=== PATIENT | female | born 1965 | race Two or more races ===

== ENCOUNTER 2023-04-09 19:29 | Emergency (ER) | payer MEDICAID ==
[~2023-04-09] VITALS: Ht 160 cm; Wt 39.9 kg
[2023-04-09] MEDS ORDERED: MORPHINE SULFATE INJ 2 MG/ML DISP.SYRIN ONE (20:27)
[2023-04-09] MEDS ORDERED: MORPHINE SULFATE INJ 2 MG/ML DISP.SYRIN IV ONE (20:30)
[2023-04-09] MEDS ORDERED: IBUPROFEN 400 MG TABLET PO ONE (21:00)
[2023-04-09] MEDS ORDERED: IBUPROFEN 400 MG TABLET ONE (21:02)
[2023-04-09] MEDS ORDERED: PROPOFOL 20 ML IV ONE (21:26)
[2023-04-09] MEDS ORDERED: PROPOFOL 200 MG/20 ML VIAL IV ONE (21:30)
[2023-04-09] MEDS ORDERED: ACET-2605 PO (22:26)
[2023-04-09] MEDS ORDERED: IBUP-1955 PO (22:26)
[2023-04-09] MEDS ORDERED: HYDR-3972 PO (22:26)
[2023-04-09] MEDS ORDERED: TDAP [DIPH/PERTUSSIS/TET] 0.5 ML VIAL IM ONE (22:30)
[2023-04-09 22:44] VITALS: BP 140/85; TEMP 98; O2SAT 97
== END 2023-04-09 22:45 | disposition home or self-care (01) ==
LOC: ER 19:39
DX: S59.192 Other physeal fracture of upper end of radius, left arm (principal); Z79.899 Other long term (current) drug therapy; W01.0XXA Fall on same level from slipping, tripping and stumbling without subsequent striking against object, initial encounter; Y93.89 Activity, other specified; Y92.89 Other specified places as the place of occurrence of the external cause; Y99.8 Other external cause status
CPT/HCPCS: 25605; 99285; 90471; 99152; 90715; 73110; 96374; 73100; J2704; J7040; J2270; G0500

== ENCOUNTER 2023-08-04 12:12 | Emergency (ER) | payer MEDICAID ==
[~2023-08-04] VITALS: Ht 162.6 cm; Wt 43.5 kg
[~2023-08-04 12:12] MED LIST: ACET-2605 PO; HYDR-3972 PO; IBUP-1955 PO
[2023-08-04 13:34] LABS: BASOPHILS % (AUTO) 1.2 % (0.0-2.0); EOSINOPHILS # (AUTO) 0.1 K/uL (0.0-0.7); EOSINOPHILS % (AUTO) 1.6 % (0.0-6.0); HEMATOCRIT 29 % (33-45); HEMOGLOBIN 9.7 g/dL (11.5-14.8); LYMPHOCYTES # (AUTO) 1.1 K/uL (0.8-4.8); LYMPHOCYTES % (AUTO) 27.2 % (20.0-44.0); MEAN CORPUSCULAR HEMOGLOBIN 36 PG (26.0-33.0); MEAN CORPUSCULAR HGB CONC 34 g/dl (31.0-36.0); MEAN CORPUSCULAR VOLUME 106 fL (82-100); MONOCYTES # (AUTO) 0.4 K/uL (0.1-1.30); MONOCYTES % (AUTO) 10.6 % (2.0-12.0); NEUTROPHILS # (AUTO) 2.3 K/uL (1.8-8.9); NEUTROPHILS % (AUTO) 59.4 % (43.0-81.0); PLATELET COUNT (AUTO) 181 K/uL (150-450); RED CELL DISTRIBUTION WIDTH 13.3 % (11.5-15.0); WHITE BLOOD COUNT (AUTO) 3.9 K/uL (4.3-11.0)
[2023-08-04 13:49] LABS: ALBUMIN 3.1 g/dL (3.4-5.0); BILIRUBIN,DIRECT 0.3 mg/dL (0.0-0.2); BILIRUBIN,TOTAL 0.5 mg/dL (0.2-1.0); CALCIUM, SERUM 7.8 mg/dL (8.5-10.1); CREATININE 0.4 mg/dL (0.6-1.3)
[2023-08-04 13:54] LABS: SALICYLATE 0.8 mg/dL (2.8-20.0)
[2023-08-04 13:55] LABS: POTASSIUM 2.8 mmol/L (3.5-5.1)
[2023-08-04] MEDS ORDERED: POTASSIUM CHLORIDE 20 MEQ TAB.PRT.SR PO ONE (14:28)
[2023-08-04] MEDS: IV NS 0.9% 1,000 ML BAG IV ONE (14:30)
[2023-08-04] MEDS: POTASSIUM CHLORIDE 20 MEQ TAB.PRT.SR PO ONE (14:30)
[2023-08-04 15:35] VITALS: BP 110/76; TEMP 98.6; O2SAT 98
== END 2023-08-04 15:36 | disposition home or self-care (01) ==
LOC: ER 12:15
DX: R53.1 Weakness (principal); F10.229 Alcohol dependence with intoxication, unspecified; D72.819 Decreased white blood cell count, unspecified; D52.0 Dietary folate deficiency anemia; E88.09 Other disorders of plasma-protein metabolism, not elsewhere classified; E87.6 Hypokalemia; Y90.8 Blood alcohol level of 240 mg/100 ml or more
CPT/HCPCS: 99283; 96360; 85025; 80048; 80076; 36415; 80143; 80320; J7030; G0480

== ENCOUNTER 2023-12-07 07:10 | Emergency (ER) | payer MEDICAID ==
[~2023-12-07] VITALS: Ht 157.5 cm; Wt 38.6 kg
[2023-12-07 08:12] LABS: APPEARANCE,URINE CLEAR (CLEAR); BILIRUBIN,URINE 1+ (NEGATIVE); BLOOD, URINE NEGATIVE Ery/uL (NEGATIVE); COLOR,URINE YELLOW (YELLOW); KETONES,URINE TRACE mg/dL (NEGATIVE); LEUKOCYTE ESTERASE ,URINE NEGATIVE (NEGATIVE); NITRITE, URINE POSITIVE (NEGATIVE); PROTEIN,URINE NEGATIVE (NEGATIVE); UGLUCOSE NEGATIVE (NEGATIVE)
[2023-12-07 08:12] LABS: BASOPHILS % (AUTO) 0.3 % (0.0-2.0); CALCIUM, SERUM 7.7 mg/dL (8.5-10.1); CARBON DIOXIDE 26 mmol/L (21-32); CHLORIDE 92 mmol/L (98-107); CREATININE 0.7 mg/dL (0.6-1.3); GLUCOSE 80 mg/dL (74-106); HEMATOCRIT 27 % (33-45); HEMOGLOBIN 9.2 g/dL (11.5-14.8); LYMPHOCYTES # (AUTO) 0.8 K/uL (0.8-4.8); LYMPHOCYTES % (AUTO) 10.8 % (20.0-44.0); MEAN CORPUSCULAR HEMOGLOBIN 38 PG (26.0-33.0); MEAN CORPUSCULAR HGB CONC 35 g/dl (31.0-36.0); MEAN CORPUSCULAR VOLUME 109 fL (82-100); MONOCYTES # (AUTO) 0.6 K/uL (0.1-1.30); MONOCYTES % (AUTO) 8.7 % (2.0-12.0); NEUTROPHILS # (AUTO) 5.6 K/uL (1.8-8.9); NEUTROPHILS % (AUTO) 80.2 % (43.0-81.0); PLATELET COUNT (AUTO) 131 K/uL (150-450); POTASSIUM 3.1 mmol/L (3.5-5.1); RED BLOOD CELL COUNT(AUTO) 2.44 MIL/uL (4.0-5.2); RED CELL DISTRIBUTION WIDTH 12.5 % (11.5-15.0); SODIUM SERUM 133 mmol/L (136-145); UREA NITROGEN, BLOOD 2 mg/dL (7-18)
[2023-12-07 08:13] LABS: SERUM AMMONIA 40 umol/L (11-32)
[2023-12-07 08:22] LABS: INR 1.14 (0.91-1.10); PARTIAL THROMBOPLASTIN TIME 30.4 SEC (24.3-34.3)
[2023-12-07 08:33] LABS: BASOPHILS % (MANUAL) 0 % (0.0-2.0); EOSINOPHILS % (MANUAL) 0 % (0-4); LYMPHOCYTES % (MANUAL) 14 % (16-48); MONOCYTES % (MANUAL) 5 % (0-11.0); NEUTROPHILS % (MANUAL) 81 (42-76); PLATELET ESTIMATE DECREASED
[2023-12-07 08:38] LABS: BACTERIA,URINE Many /HPF (None Seen); SQUAMOUS EPITHELIAL CELL,UR Few /HPF (None Seen)
[2023-12-07 08:39] LABS: ADD URINE CULTURE YES; RBC,URINE 0-2 /HPF (0-2); WBC,URINE 0-2 /HPF (0-3)
[2023-12-07 08:42] VITALS: TEMP 98
[2023-12-07] MEDS ORDERED: CEFTRIAXONE 1GM BAG (ER ONLY) 50 ML IV ONE (08:42)
[2023-12-07 08:43] LABS: ALANINE AMINOTRANSFERASE 104 U/L (12-78); ALBUMIN 2.4 g/dL (3.4-5.0); ALCOHOL, BLOOD 21 mg/dL (0-10); ALKALINE PHOSPHATASE 529 U/L (46-116); ASPARTATE AMINOTRANSFERASE 501 U/L (15-37); BILIRUBIN,DIRECT 1.4 mg/dL (0.0-0.2); BILIRUBIN,TOTAL 1.6 mg/dL (0.2-1.0); TOTAL PROTEIN, SERUM 7.4 g/dL (6.4-8.2)
[2023-12-07 08:44] LABS: ACETAMINOPHEN <10 ug/ml (10-30)
[2023-12-07] MEDS: CEFTRIAXONE 1GM BAG (ER ONLY) 1 GM/50 ML PIGGYBACK IV ONE (08:45)
[2023-12-07 08:49] LABS: AMPHETAMINE, URINE NEGATIVE (NEGATIVE); BARBITURATE, URINE NEGATIVE (NEGATIVE); BENZODIAZEPINE, URINE NEGATIVE (NEGATIVE); CANNABINOID, URINE NEGATIVE (NEGATIVE); COCCAINE, URINE NEGATIVE (NEGATIVE); OPIATE, URINE NEGATIVE (NEGATIVE); PHENCYCLIDINE SCREEN,URINE NEGATIVE (NEGATIVE)
[2023-12-07] MEDS: LEVETIRACETAM (500MG) 1,000 MG in IV NS 0.9% 90 ML IV SCH (09:00)
[2023-12-07 13:40] VITALS: BP 97/68; O2SAT 96
== END 2023-12-07 14:43 | disposition short-term general hospital (02) ==
LOC: ER 07:15
DX: S06.5XAA Traumatic subdural hemorrhage with loss of consciousness status unknown, initial encounter (principal); N39.0 Urinary tract infection, site not specified; E87.1 Hypo-osmolality and hyponatremia; F10.10 Alcohol abuse, uncomplicated; Z79.1 Long term (current) use of non-steroidal anti-inflammatories (NSAID); Z79.891 Long term (current) use of opiate analgesic; X58.XXXA Exposure to other specified factors, initial encounter; Y93.89 Activity, other specified; Y92.89 Other specified places as the place of occurrence of the external cause; Y99.8 Other external cause status; Y90.1 Blood alcohol level of 20-39 mg/100 ml
CPT/HCPCS: 99291; 96365; 96368; 93005; 71045; 70450; 82140; 85025; 80048; 87086; 80076; 85007; 81001; 36415; 84443; 85730; 82962; 80143; 80320; 80307; J7030; J0696; J1953; G0480